=== PATIENT | female | born 2000 | race African-American/Black ===

== ENCOUNTER 2018-08-21 11:40 | Emergency (ER) | payer MEDICAID ==
[~2018-08-21] VITALS: Ht 170.2 cm; Wt 65.0 kg
[2018-08-21] MEDS ORDERED: METHYLPREDNISOLONE SOD SUCC 125 MG/2 ML VIAL IM ONE (14:45)
[2018-08-21 14:53] VITALS: BP 119/71
== END 2018-08-21 14:53 | disposition home or self-care (01) ==
LOC: ER 12:10
DX: T78.1XXA Other adverse food reactions, not elsewhere classified, initial encounter (principal); X58.XXXA Exposure to other specified factors, initial encounter; Z98.890 Other specified postprocedural states
CPT/HCPCS: 96372; 99283; J2930